=== PATIENT | female | born 1970 | race Caucasian/White ===

== ENCOUNTER 2017-07-13 13:47 | Emergency (ER) | payer OTHER, MEDICARE ==
[2017-07-13] MEDS: morphine 10 MG INJ IM (15:31)
[2017-07-13] MEDS: KETOROLAC 30 MG INJ IM (15:32)
[2017-07-13] MEDS: ONDANSETRON (ODT) 4 MG TAB ODT (15:32)
[2017-07-13 16:33] LABS: ADD UMIC NO; UR ASCORBIC ACID NEGATIVE (NEGATIVE); UR BILIRUBIN (Dip) NEGATIVE (NEGATIVE); UR BLOOD (Dip) NEGATIVE (NEGATIVE); UR CLARITY CLEAR (CLEAR); UR COLOR STRAW (YELLOW); UR GLUCOSE (Dip) NEGATIVE (NEGATIVE); UR KETONES (Dip) NEGATIVE (NEGATIVE); UR LEUKOCYTE ESTERASE (Dip) NEGATIVE Leu/ul (NEGATIVE); UR NITRITE (Dip) NEGATIVE (NEGATIVE); UR SPECIFIC GRAVITY (Dip) 1.013 (1.003-1.030); UR TOTAL PROTEIN (Dip) NEGATIVE (NEGATIVE); UR UROBILINOGEN (Dip) NEGATIVE (NEGATIVE)
[2017-07-13] MEDS: HYDROmorphONE 2 MG/ML SYG IM (16:33)
== END 2017-07-13 18:10 | disposition home or self-care (01) ==
LOC: FTE 13:47
DX: M54.5 Low back pain (principal)
CPT/HCPCS: 81003; 81025; 96372; 99284-25